=== PATIENT | male | born 1955 | race Caucasian/White ===

== ENCOUNTER 2021-08-31 09:07 | Observation (INO) | payer OTHER ==
--- OUTSIDE RECORDS SUMMARY | 2021-08-31 09:09 | XMS REPORT | Continuity of Care Document ---
:1955 Author Organization [facility] t Address [address] [place] [address] Care Team Providers Name Role Phone Chang Attending Clinician Unavailable Payers Payer Name Policy Type Policy Number Effective Date Expiration Date S ource Problems This patient has no known problems. Allergies, Adverse Reactions, Alerts This patient has no known allergies or adverse reactions. Medications This patient has no known medications. Procedures This patient has no known procedures. Encounters Start End Encounter Admission Attending Care Care Encounter Source Date/Time Date/Time Type Type Clinicians Facility Department ID 2021-04-25 Inpatient MADY Chang [facility] [id number] [facility] 16:00:00 Abel [id number] [facility] 2021-04-08 Inpatient MADY DowningMARIAHTO SURG [id number] [facility] 13:30:00 Abel [id number] [facility] Results This patient has no known results.
[2021-08-31 10:03] LABS: Absolute Lymphocytes (CBC) 1.3 K/uL (0.7-4.9); Hematocrit 44.9 % (39.6-49.0); Lymphocytes % 20.6 % (15.3-44.8); MPV 9.2 fL (7.6-11.3); RBC Red Blood Cell Count 5.24 M/uL (4.33-5.43)
[2021-08-31 10:04] LABS: Protime INR 1.05
[2021-08-31 10:21] LABS: ALT/SGPT 34 U/L (12-78); AST/SGOT 16 U/L (15-37); Albumin 3.8 g/dL (3.4-5.0); Alkaline Phosphatase 120 U/L (45-117); BUN Blood Urea Nitrogen 17 mg/dL (7-18); Bicarbonate 23 mmol/L (21-32); Bilirubin Direct 0.1 mg/dL (0-0.2); Bilirubin Total 0.7 mg/dL (0.2-1.0); Glucose Level 107 mg/dL (74-106); Magnesium 2.2 mg/dL (1.8-2.4); NT PRO-BNP 162 pg/mL (<125); Protein, Total 7.6 g/dL (6.4-8.2); Sodium Level 141 mmol/L (136-145); Troponin (Emerg Dept Use Only) < 0.02 ng/mL (0.0-0.045)
--- NOTE | 2021-08-31 11:00 | RAD REPORT ---
EXAM DESCRIPTION: RAD - Chest Single View - 08/31/2021 10:49 am CLINICAL HISTORY: CHEST PAIN COMPARISON: October 2017 TECHNIQUE: AP portable chest image was obtained 08/31/2021 10:49 am . FINDINGS: No peripheral mass or consolidation. Minimally prominent interstitial pattern matches comp arison. No acute failure or volume overload. Heart and vasculature are normal. No measurable pleural effusion and no pneumothorax. No acute bony abnormality seen. No acute aortic findings suspected. IMPRESSION: No acute cardiopulmonary process. No significant change from comparison study.
--- NOTE | 2021-08-31 16:18 | ER ---
Nurse's Notes [facility] Name: Solomon Qiu Age: 66 yrs Sex: Male : 1955 Arrival Date: 08/31/2021 Time: 09:08 Bed 24 Private MD: Diagnosis: Chest pain, unspecified;Bradycardia, unspecified Presentation: 08/31 09:34 Chief complaint: Patient states: Midsternal chest pain that does not radiate began this vg1 morning around 0630; denies NV or h/a, states shortness of breath. States took '4 baby aspirin this morning around 0830'. Coronavirus screen: Vaccine status: Patient reports receiving the 2nd dose of the covid vaccine. Client denies travel out of the [place] in the last 14 days. Ebola Screen: Patient negative for fever greater than or equal to 101.5 degrees Fahrenheit, and additional compatible Ebola Virus Disease symptoms. Initial Sepsis Screen: Does the patient meet any 2 criteria? No. Patient's initial sepsis screen is negative. Does the patient have a suspected source of infection? No. Patient's initial sepsis screen is negative. Risk Assessment: Do you want to hurt yourself or someone else? Patient reports no desire to harm self or others. Onset of symptoms was August 31, 2021. 09:34 Method Of Arrival: Ambulatory vg1 09:34 Acuity: RIMMA 2 vg1 Triage Assessment: 09:37 General: Appears in no apparent distress. uncomfortable, Behavior is calm, cooperative. vg1 Pain: Complains of pain in mid-sternal area Pain does not radiate. Cardiovascular: Patient's skin is warm and dry. Historical: - Allergies: 09:37 No Known Allergies; vg1 - Home Meds: 09:37 [place] Thyroid Oral [Active]; Vitamin B-12 sublingual [Active]; Vitamin D3 Oral vg1 [Active]; Metoprolol Tartrate Oral [Active]; 09:39 Lexapro Oral [Active]; vg1 - PMHx: 09:37 graves disease; Hypertension; Hypothyroidism; Atrial fibrillation; vg1 - PSHx: 09:37 Knee-Left; Shoulder-Right; Hernia repair; vg1 - Immunization history:: Client reports receiving the 2nd dose of the Covid vaccine. - Social history:: Smoking status: Patient denies any tobacco usage or history of. Screenin:02 Abuse screen: Denies threats or abuse. Denies injuries from another. Nutritional jl7 screening: No deficits noted. Tuberculosis screening: No symptoms or risk factors identified. Fall Risk IV access (20 points). Total Akbar Fall Scale indicates No Risk (0-24 pts). Assessment: 16:02 Reassessment: Patient appears in no apparent distress at this time. Patient and/or jl7 family updated on plan of care and expected duration. Pain level reassessed. Patient is alert, oriented x 3, equal unlabored respirations, skin warm/dry/pink. Patient denies pain at this time. Vital Signs: 09:34 BP 138 / 77; Pulse 50; Resp 20; Temp 97.1; Pulse Ox 100% ; Weight 113.4 kg; Height 5 vg1 ft. 10 in. (177.80 cm); Pain 4/10; 16:02 BP 131 / 68; Pulse 43; Resp 17 S; Pulse Ox 100% on R/A; Pain 0/10; jl7 20:31 BP 118 / 65; Pulse 66; Resp 17; Pulse Ox 99% ; cg 09:34 Body Mass Index 35.87 (113.40 kg, 177.80 cm) vg1 ED Course: 09:08 Patient arrived in ED. am2 09:37 Triage completed. vg1 09:37 Geremias Guerrero PA is PHCP. cp 09:37 Isaac Myles MD is Attending Physician. cp 09:37 Arm band placed on. EKG completed in triage. Results shown to MD. vg1 09:48 Basic Metabolic Panel Sent. jl7 09:48 LFT's Sent. jl7 09:48 Magnesium Sent. jl7 09:49 Initial lab(s) drawn, by in, sent to lab. Inserted saline lock: 20 gauge in right jl7 wrist, using aseptic technique. Blood collected. Patient maintains SpO2 saturation greater than 95% on room air. 10:49 XRAY Chest (1 view) In Process Unspecified. EDMS 15:53 Faisal Mckinnon, RN is Primary Nurse. jl7 16:02 Patient has correct armband on for positive identification. Bed in low position. Call [facility] light in reach. Side rails up X 1. campus monitor on. Pulse ox on. NIBP on. 16:16 Germain Mancia is Hospitalizing Provider. cp 17:31 COVID swab sent to lab. jl7 Administered Medications: 14:20 CANCELLED (Physician Discretion): Aspirin Chewable Tablet 324 mg PO once; 81 mg tablets cp x 4 Outcome: 16:17 Decision to Hospitalize by Provider. cp 20:52 Patient left the ED. bb Signatures: Dispatcher [employer] EDMS Sima Nickerson RN RN bb Geremias Guerrero PA PA cp Ivana Barcenas, RN RN Faisal Mckinnon RN RN jl7 Adalgisa Espinoza Victoria RN RN vg1
--- NOTE | 2021-08-31 16:18 | EDPHYS ---
Physician Documentation [facility] Name: Solomon Qiu Age: 66 yrs Sex: Male : 1955 Arrival Date: 08/31/2021 Time: 09:08 Bed 24 Private MD: ED Physician Isaac Myles HPI: 08/31 09:45 This 66 yrs old Male presents to ER via Ambulatory with complaints of Chest Pain > 30 cp y/o. 09:45 The patient presents with a history of heart racing. cp 09:45 Onset: The symptoms/episode began/occurred this morning, about 0630. Duration: The cp patient or guardian reports a single episode, that is still ongoing, but improving. The pain does not radiate. Associated signs and symptoms: Pertinent positives: chest tightness, Pertinent negatives: cough, fever, SOB, syncope, vomiting. Severity of pain: in the emergency department the pain has improved. 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 cp Historical: - Allergies: 09:37 No Known Allergies; vg1 - Home Meds: 09:37 [place] Thyroid Oral [Active]; Vitamin B-12 sublingual [Active]; Vitamin D3 Oral vg1 [Active]; Metoprolol Tartrate Oral [Active]; 09:39 Lexapro Oral [Active]; vg1 - PMHx: 09:37 graves disease; Hypertension; Hypothyroidism; Atrial fibrillation; vg1 - PSHx: 09:37 Knee-Left; Shoulder-Right; Hernia repair; vg1 - Immunization history:: Client reports receiving the 2nd dose of the Covid vaccine. - Social history:: Smoking status: Patient denies any tobacco usage or history of. ROS: 09:50 Constitutional: Negative for body aches, chills, fever, poor PO intake. cp 09:50 Cardiovascular: Positive for chest pain, palpitations, Negative for edema. cp 09:50 Eyes: Negative for injury, pain, redness, and discharge. cp 09:50 ENT: Negative for ear pain, sore throat, difficulty swallowing, difficulty handling secretions. 09:50 Respiratory: Negative for cough, shortness of breath, wheezing. 09:50 Abdomen/GI: Negative for abdominal pain, nausea, vomiting, and diarrhea. 09:50 Back: Negative for pain at rest, pain with movement. 09:50 : Negative for urinary symptoms. 09:50 Neuro: Negative for altered mental status, dizziness, headache, syncope, weakness. 09:50 All other systems are negative. Exam: 09:40 ECG was reviewed by the Attending Physician. cp 09:55 Constitutional: The patient appears in no acute distress, alert, awake, cp non-diaphoretic, non-toxic, well developed, well nourished. 09:55 Head/Face: Normocephalic, atraumatic. cp 09:55 Eyes: Periorbital structures: appear normal, Conjunctiva: normal, no exudate, no injection, Sclera: no appreciated abnormality, Lids and lashes: appear normal, bilaterally. 09:55 ENT: External ear(s): are unremarkable, Nose: is normal, Mouth: Lips: moist, Oral mucosa: pink and intact, moist, Posterior pharynx: Airway: no evidence of obstruction, patent. 09:55 Neck: ROM/movement: is normal, is supple, without pain, no range of motions limitations. 09:55 Chest/axilla: Inspection: normal, Palpation: is normal, no crepitus, no tenderness. 09:55 Cardiovascular: Rate: bradycardic, Rhythm: regular, Edema: is not appreciated, JVD: is not appreciated. 09:55 Respiratory: the patient does not display signs of respiratory distress, Respirations: normal, no use of accessory muscles, no retractions, labored breathing, is not present, Breath sounds: are clear throughout, no decreased breath sounds, no stridor, no wheezing. 09:55 Abdomen/GI: Inspection: abdomen appears normal, Bowel sounds: active, all quadrants, Palpation: abdomen is soft and non-tender, in all quadrants. 09:55 Back: pain, is absent, ROM is normal. Vital Signs: 09:34 BP 138 / 77; Pulse 50; Resp 20; Temp 97.1; Pulse Ox 100% ; Weight 113.4 kg; Height 5 vg1 ft. 10 in. (177.80 cm); Pain 4/10; 16:02 BP 131 / 68; Pulse 43; Resp 17 S; Pulse Ox 100% on R/A; Pain 0/10; jl7 20:31 BP 118 / 65; Pulse 66; Resp 17; Pulse Ox 99% ; cg 09:34 Body Mass Index 35.87 (113.40 kg, 177.80 cm) vg1 MDM: 14:13 Patient medically screened. cp 14:22 The patient was not given aspirin in the Emergency Department. Patient reports taking cp aspirin within the past 24 hours. ED course: Patient denies any current chest pain. 16:15 Data reviewed: vital signs, nurses notes, lab test result(s), EKG, radiologic studies, cp plain films. 16:15 Differential diagnosis: abnormal EKG, acute myocardial infarction, arrythmia, stable cp angina, unstable angina. Test interpretation: by ED physician or midlevel provider: ECG, plain radiologic studies. ED course: VS noted. Patient observed to have HR at 40 bpm on monitor. No current complaints of chest pain. Will admit for observation after consult with DR Mancia. 08/31 09:38 Order name: Basic Metabolic Panel 08/31 09:38 Order name: CBC with Diff; Complete Time: 10:17 08/31 11:04 Interpretation: Reviewed. 08/31 09:38 Order name: LFT's 08/31 09:38 Order name: Magnesium 08/31 09:38 Order name: NT PRO-BNP; Complete Time: 11:03 08/31 11:04 Interpretation: NT PRO-BNP 162; Reviewed. 08/31 09:38 Order name: PT-INR; Complete Time: 10:17 08/31 09:38 Order name: Troponin (emerg Dept Use Only); Complete Time: 11:03 08/31 11:05 Interpretation: Reviewed. 08/31 09:39 Order name: Basic Metabolic Panel; Complete Time: 11:03 EDLA 08/31 11:03 Interpretation: Normal except: CL 111; GLUC 107; GFR 62. 08/31 09:39 Order name: Liver (Hepatic) Function; Complete Time: 11:03 EDLA 08/31 11:03 Interpretation: Normal except: ALK 120; GLOB 3.8; A/G 1.0. 08/31 09:39 Order name: Magnesium; Complete Time: 11:03 EDLA 08/31 15:43 Order name: Troponin (emerg Dept Use Only) 08/31 16:37 Order name: SARS-COV-2 RT PCR (Document "Date of Onset" if Symptomatic) [facility] 08/31 16:37 Order name: SARS-COV-2 RT PCR EDMS 08/31 09:30 Order name: EKG; Complete Time: 09:30 vg1 08/31 09:30 Order name: EKG - Nurse/Tech; Complete Time: 09:48 vg1 08/31 09:38 Order name: XRAY Chest (1 view); Complete Time: 11:03 cp 08/31 11:05 Interpretation: Report reviewed. 08/31 09:38 Order name: IV Saline Lock; Complete Time: 09:48 cp 08/31 09:38 Order name: Labs collected and sent; Complete Time: 09:48 cp 08/31 09:38 Order name: O2 Per Protocol; Complete Time: 09:48 cp 08/31 09:38 Order name: O2 Sat Monitoring; Complete Time: 09:48 cp 08/31 15:43 Order name: EKG; Complete Time: 15:44 cp 08/31 15:43 Order name: EKG - Nurse/Tech; Complete Time: 15:53 cp 08/31 15:44 Order name: Vital Signs; Complete Time: 16:03 cp 08/31 16:32 Order name: Diet Heart Healthy; Complete Time: 16:33 cp EC:40 Rate is 47 beats/min. Rhythm is regular. [place] interval is normal. QRS interval is normal. cp QT interval is normal. Interpreted by me. Reviewed by me. Administered Medications: 14:20 CANCELLED (Physician Discretion): Aspirin Chewable Tablet 324 mg PO once; 81 mg tablets cp x 4 Disposition: 09/01 08:13 Co-signature as Attending Physician, Isaac Myles MD I agree with the assessment and kdr plan of care. Disposition Summary: 08/31/21 16:17 Hospitalization Ordered Hospitalization Status: Observation cp Provider: Germain Mancia cp Location: Telemetry/MedSurg (observation) cp Condition: Stable cp Problem: new cp Symptoms: have improved cp Bed/Room Type: Standard cp Room Assignment: 213(08/31/21 19:57) cg Diagnosis - Chest pain, unspecified cp - Bradycardia, unspecified cp Forms: - Medication Reconciliation Form cp - SBAR form cp Signatures: Dispatcher [employer] EDMS Isaac Myles MD MD kdr Page, Corey, PA PA cp Ivana Barcenas RN RN cg Garcia, Victoria, RN RN vg1 Corrections: (The following items were deleted from the chart) 12/29 14:20 13:17 TROPONIN (EMERG DEPT USE ONLY)+C.LAB.BRZ ordered. EDMS EDMS 14: 14:14 Aspirin Chewable Tablet 324 mg PO once; 81 mg tablets x 4 ordered. cp cp 14:22 09:45 The patient or guardian reports chest pain that is located primarily in the cp anterior chest wall, cp 19:57 16:17 cp cg
--- NOTE | 2021-08-31 17:17 | P.HP ---
Certification for Inpatient Patient admitted to: Observation With expected LOS: <2 Midnights Practitioner: I am a practitioner with admitting privileges, knowledge of patient current condition, hospital course, and medical plan of care. Services: Services provided to patient in accordance with Admission requirements found in Title 42 Section 412.3 of the Code of Federal Regulations Patient History Date of Service: 08/31/21 Reason for admission: Chest tightness. History of Present Illness: 66-year-old gentleman with a history of atrial fibrillation on metoprolol, not anticoagulated presented to the emergency department with a complaint of chest tightness of onset this morning. Symptoms associated with shortness of breath and preceded by palpitation. Patient denies any diaphoresis or nausea. He denies any abdominal pain, denies any cough. Patient noted to be bradycardic in the ED. EKG demonstrated sinus bradycardia, no heart block. He is on metoprolol 25 mg twice daily and took his morning dose. His heart rate was in the low 40s during my assessment in the ED. Patient currently asymptomatic. He is placed under observation for ACS rule out and further assessment of the bradycardia. Allergies No Known Allergies Allergy (Verified 10/05/17 01:32) Home Medications: Aspirin Chewable [Aspirin Chewable*] 81 mg PO DAILY #30 tab.chew 10/05/17 Levothyroxine [Synthroid] 75 mcg PO [id number] #30 tab 10/05/17 Metoprolol Tartrate 25 mg PO BID #60 tablet 10/05/17 - Past Medical/Surgical History Diabetic: No -: Graves disease -: Atrial fibrillation -: Iatrogenic hypothyroidism -: Hernia repair -: hemorrhodectomy - Family History Father -: Heart disease Mother -: Lung disease, Diabetes, Stroke, Kidney disease - Social History Alcohol use: No CD- Drugs: No Caffeine use: Yes Review of Systems Other: Except as documented, all other systems reviewed and negative. Physical Examination - Physical Exam General: Alert, In no apparent distress, Oriented x3 HEENT: Atraumatic, PERRLA, Mucous membr. moist/pink, Sclerae nonicteric Neck: Supple, JVD not distended Respiratory: Clear to auscultation bilaterally, Normal air movement Cardiovascular: No edema, Regular rate/rhythm, Normal S1 S2, No murmurs Gastrointestinal: Normal bowel sounds, Soft and benign, Non-distended, No tenderness Musculoskeletal: No swelling Integumentary: No rashes Neurological: Normal speech, Normal strength at 5/5 x4 extr, Cranial nerves 3-12 intact Lymphatics: No axilla or inguinal lymphadenopathy - Studies Laboratory Data (last 24 hrs) 08/31/21 09:40: PT 12.1, INR 1.05 08/31/21 09:40: WBC 6.10, Hgb 15.1, Hct 44.9, Plt Count 153 08/31/21 09:40: Sodium 141, Potassium 4.0, BUN 17, Creatinine 1.18, Glucose 107 H, Magnesium 2.2, Total Bilirubin 0.7, AST 16, ALT 34, Alkaline Phosphatase 120 H Assessment and Plan - Problems (Diagnosis) (1) Sinus bradycardia Current Visit: Yes Status: Acute (2) Chest pain Current Visit: Yes Status: Acute (3) Hypertension Current Visit: No Status: Acute (4) Hypothyroidism Current Visit: No Status: Acute (5) Paroxysmal atrial fibrillation Onset Date: 10/05/17 Current Visit: No Status: Acute - Plan Place patient under observation. Trend troponin Hold home dose metoprolol Obtain echocardiogram Check TSH for levothyroxine dose adjustment. Cardiology consult. Collect, confirm and reconcile home medications. - Advance Directives Does patient have a Living Will: No Does patient have a Durable POA for Healthcare: No
[2021-08-31 21:06] VITALS: O2SAT 99; BMI 35.6
[2021-08-31] MEDS ORDERED: MORPHINE 4 MG/ML SYR IV PRN (21:11)
[2021-08-31 21:46] LABS: HDL Cholesterol 35 mg/dL (40-60); LDL Cholesterol, Calculated 126 (<130); Troponin I < 0.02 ng/mL (0.0-0.045)
[2021-09-01 04:50] LABS: Absolute Lymphocytes (CBC) 1.7 K/uL (0.7-4.9); Hematocrit 41.5 % (39.6-49.0); Lymphocytes % 21.1 % (15.3-44.8); MPV 9.4 fL (7.6-11.3)
[2021-09-01 05:17] LABS: Potassium 4.3 mmol/L (3.5-5.1)
[2021-09-01] MEDS ORDERED: ESCITALOPRAM 20 MG TAB PO SCH (09:00)
[2021-09-01] MEDS ORDERED: ENOXAPARIN 40 MG/0.4 ML SQ SCH (09:00)
[2021-09-01] MEDS ORDERED: ASPIRIN EC 81 MG TAB PO SCH (09:00)
[2021-09-01] MEDS ORDERED: HOME MED 1 EA UNK (Thyroid,Pork [Armour Thyroid] 60 MG Tablet) PO SCH (09:00)
--- NOTE | 2021-09-01 14:26 | P.DS ---
Admission Date: 08/31/21 Discharge Date: 09/01/21 Disposition: ROUTINE DISCHARGE Discharge Condition: FAIR Reason for Admission: Chest tightness. Consultations: Cardiology-Dr. Campuzano. - Problems (1) Sinus bradycardia Current Visit: Yes Status: Acute (2) Chest pain Current Visit: Yes Status: Acute (3) Hypertension Current Visit: No Status: Acute (4) Hypothyroidism Current Visit: No Status: Acute (5) Paroxysmal atrial fibrillation Onset Date: 10/05/17 Current Visit: No Status: Acute Brief History of Present Illness: 66-year-old gentleman with a history of atrial fibrillation on metoprolol, not anticoagulated presented to the emergency department with a complaint of chest tightness of onset this morning. Symptoms associated with shortness of breath and preceded by palpitation. Patient denies any diaphoresis or nausea. He denies any abdominal pain, denies any cough. Patient noted to be bradycardic in the ED. EKG demonstrated sinus bradycardia, no heart block. He is on metoprolol 25 mg twice daily and took his morning dose. His heart rate was in the low 40s during my assessment in the ED. Patient currently asymptomatic. He is placed under observation for ACS rule out and further assessment of the bradycardia. Hospital Course: Patient placed under observation on the medical floor. Troponin trended negative. Patient evaluated by cardiology-Dr. Campuzano who recommended outpatient stress test. Patient was still bradycardic despite holding his home dose metoprolol. He was in sinus rhythm. Echocardiogram ordered and the result is pending. TSH within normal limit. ACS ruled out, vitals are stable. Patient is deemed stable for discharge. He will follow with Dr. Campuzano as an outpatient for stress test. Vital Signs/Physical Exam: Temp Pulse Resp BP Pulse Ox 97.8 F 50 18 130/63 98 09/01/21 08:00 09/01/21 08:00 09/01/21 08:00 09/01/21 08:00 09/01/21 08:00 General: Alert, In no apparent distress, Oriented x3 HEENT: Mucous membr. moist/pink Neck: Supple, JVD not distended Respiratory: Clear to auscultation bilaterally, Normal air movement Cardiovascular: No edema, Normal S1 S2, Other (Bradycardia) Gastrointestinal: Normal bowel sounds, Soft and benign, Non-distended, No tenderness Musculoskeletal: No swelling Integumentary: No rashes Neurological: Normal strength at 5/5 x4 extr Laboratory Data at Discharge: WBC 8.10 K/uL (4.3-10.9) D 09/01/21 04:22 Hgb 13.7 g/dL (13.6-17.9) 09/01/21 04:22 Hct 41.5 % (39.6-49.0) 09/01/21 04:22 Plt Count 154 K/uL (152-406) 09/01/21 04:22 PT 12.1 SECONDS (9.5-12.5) 08/31/21 09:40 INR 1.05 08/31/21 09:40 Sodium 143 mmol/L (136-145) 09/01/21 04:22 Potassium 4.3 mmol/L (3.5-5.1) 09/01/21 04:22 BUN 24 mg/dL (7-18) H 09/01/21 04:22 Creatinine 1.44 mg/dL (0.55-1.3) H 09/01/21 04:22 Glucose 102 mg/dL (74-106) 09/01/21 04:22 Magnesium 2.2 mg/dL (1.8-2.4) 08/31/21 09:40 Total Bilirubin 0.7 mg/dL (0.2-1.0) 08/31/21 09:40 AST 16 U/L (15-37) 08/31/21 09:40 ALT 34 U/L (12-78) 08/31/21 09:40 Alkaline Phosphatase 120 U/L (45-117) H 08/31/21 09:40 Troponin I < 0.02 ng/mL (0.0-0.045) 09/01/21 00:41 Triglycerides 280 mg/dL (<150) H 08/31/21 21:21 Cholesterol 217 mg/dL (<200) H 08/31/21 21:21 HDL Cholesterol 35 mg/dL (40-60) L 08/31/21 21:21 Cholesterol/HDL Ratio 6.20 08/31/21 21:21 Home Medications: Escitalopram [Lexapro*] 0.5 tab PO DAILY 08/31/21 Thyroid,Pork [[place] Thyroid] 1 tab PO DAILY 08/31/21 Aspirin [Aspirin EC 81 MG] 81 mg PO DAILY #30 tablet. 09/01/21 New Medications: Aspirin [Aspirin EC 81 MG] 81 mg PO DAILY #30 tablet. Physician Discharge Instructions: Please call Dr. Campuzano's office at [phone] for arrangement for outpatient stress test. Diet: AHA Activity: Ad dominic Followup: José Manuel Pal DO [Primary Care Provider] - 1-2 Weeks Rafa Campuzano MD [ACTIVE - CAN ADMIT] - 1 Week (Outpatient stress test)
[2021-09-01 17:37] VITALS: BP 156/70; TEMP 97.9
[2021-09-02] MEDS ORDERED: THYROID 30 MG TAB PO SCH (06:00)
--- NOTE | 2021-09-05 08:30 | ECHO ---
HEIGHT: 5 ft 10 in WEIGHT: 248 lb 14.4 oz DATE OF STUDY: 09/01/[address]: tono bartlett 2-DIMENSIONAL: YES M.MODE: YES DOPPLER: YES COLOR FLOW: YES TDS: PORTABLE: DEFINITY: BUBBLE STUDY: DIAGNOSIS: SYMPTOMATIC BRADYCARDIA CARDIAC HISTORY: CATHERIZATION: SURGERY: PROSTHETIC VALVE: PACEMAKER: MEASUREMENTS (cm) DIASTOLIC (NORMALS) SYSTOLIC (NORMALS) IVSd 1.1 (0.6-1.2) LA Diam 3.8 (1.9-4.0) LVEF 60-65% LVIDd 5.5 (3.5-5.7) LVIDs 3.2 (2.0-3.5) %FS 43% LVPWd 1.2 (0.6-1.2) Ao Diam 3.2 (2.0-3.7) 2 DIMENSIONAL ASSESSMENT: RIGHT ATRIUM: NORMAL LEFT ATRIUM: NORMAL RIGHT VENTRICLE: NORMAL LEFT VENTRICLE: NORMAL TRICUSPID VALVE: NORMAL MITRAL VALVE: MILD MITRAL REGURGITATION PULMONIC VALVE: NORMAL AORTIC VALVE: NORMAL PERICARDIAL EFFUSION: NONE AORTIC ROOT: NORMAL LEFT VENTRICULAR WALL MOTION: NORMAL DOPPLER/COLOR FLOW: MILD MITRAL REGURGITATION COMMENTS: NORMAL LEFT VENTRICULAR EJECTION FRACTION 60-65%. NORMAL WALL MOTION. MILD MITRAL REGURGITATION. TECHNOLOGIST: CHENG RODAS
== END 2021-09-01 17:25 | disposition home or self-care (01) ==
LOC: ER 09:07 → ERHOLD 17:02 → 2ND 20:37
PROVIDERS: ADMIT Internal Medicine; ATTEND Internal Medicine
DX: R00.1 Bradycardia, unspecified (principal); R07.9 Chest pain, unspecified; I48.0 Paroxysmal atrial fibrillation; I10 Essential (primary) hypertension; E03.2 Hypothyroidism due to medicaments and other exogenous substances; E05.00 Thyrotoxicosis with diffuse goiter without thyrotoxic crisis or storm; Z20.822 Contact with and (suspected) exposure to COVID-19; Z82.49 Family history of ischemic heart disease and other diseases of the circulatory system; Z82.3 Family history of stroke; Z83.3 Family history of diabetes mellitus; Z84.1 Family history of disorders of kidney and ureter; Z83.6 Family history of other diseases of the respiratory system
CPT/HCPCS: 93005 ×2; 93306; 85025 ×2; 80048 ×2; 36415; 83735; 85610; 80061; 80076; 84443; 84484 ×4; 83880; 71045; 99285; U0003; J1650; G0378 ×3

== ENCOUNTER 2022-10-12 19:04 | Emergency (ER) | payer OTHER ==
--- OUTSIDE RECORDS SUMMARY | 2022-10-12 19:09 | XMS REPORT | Continuity of Care Document ---
:1955 Author Organization [facility] t Address [address] [place] [address] Dr. Stephen[address] [place] [address] Care Team Providers Name Role Phone Asked, No Pcp Primary Care Physician Unavailable Abel Downing Attending Clinician Unavailable Sadi Johnson Attending Clinician Unavailable Sadi Johnson Admitting Clinician Unavailable Payers Payer Name Policy Type Policy Number Effective Date Expiration Date S ource Problems This patient has no known problems. Allergies, Adverse Reactions, Alerts Allergy Allergy Status Severity Reaction(s) Onset Inactive Treating Comm ents Source Name Type Date Date Clinician No Known DA Active U [facility]ie 09-20 Clear s 00:00: Uribe 00 [facility] Social History Social Habit Start Date Stop Date Quantity Comments Source Sex Assigned At [birth year] [facility] 00:00:00 00:00:00 Smoking Status Start Date Stop Date Source Tobacco smoking consumption unknown [facility] Medications This patient has no known medications. Procedures Procedure Date / Time Performed Performing Clinician Elyse garcia [id number] 2021-09-26 00:00:00 [facility] [id number] 2021-09-26 00:00:00 [facility] [id number] 2021-09-26 00:00:00 [facility] Plan of Care Planned Activity Planned Date Details Comments Source Future Scheduled 2022-08-19 COVID-19 VACCINE (#1) [facility] Test 05:37:59 [code = COVID-19 VACCINE (#1)] Future Scheduled 2022-08-19 COLONOSCOPY SCREENING [facility] Test 05:37:59 [code = COLONOSCOPY SCREENING] Future Scheduled 2022-08-19 SHINGLES VACCINES (1 [facility] Test 05:37:59 of 2) [code = SHINGLES VACCINES (1 of 2)] Future Scheduled 2022-08-19 65+ PNEUMOCOCCAL Methodi [facility] Test 05:37:59 VACCINE (1 - PCV) [code = 65+ PNEUMOCOCCAL VACCINE (1 - PCV)] Future Scheduled 2022-08-19 INFLUENZA VACCINE Method [facility] Test 05:37:59 [code = INFLUENZA VACCINE] Encounters Start End Encounter Admission Attending Care Care Encounter Source Date/Time Date/Time Type Type Clinicians Facility Department ID 2021-04-25 Inpatient MADY Downing, [facility] [id number] [facility] 16:00:00 Abel 20 [facility] 2021-09-26 2021-09-27 Inpatient MADY Johnson, [facility]G [id number] [facility] 09:42:00 15:00:00 Sadi 52 [facility] 2021-09-20 2021-09-20 Outpatient MADY Johnson, [facility]AT[facility] 3DAY [id number] [facility] 09:00:00 23:00:00 Sadi 89 [facility] 2021-09-20 2021-09-20 Outpatient Alex, HCACL LABO [id number] [facility] 16:31:00 16:31:00 Sadi 76 [facility] Results Test Description Test Time Test Comments Results Result [facility] e Comments - XR PELVIS 09/042021-09-26 [facility]WS [facility]:24:[facility] 1955 Sex: M Patient Name: VIVEK QIU Unit No: [id number] EXAMS: CPT CODE: [id number] XR PELVIS 1/2 VIEWS 05028 INTRAOPERATIVE LEG LENGTH FILM COMMENT: COMPARISON: No prior exams available. In progress right hip replacement is noted. at 1524 Reported and signed by: Tai Gastelum MD CC: Sadi Johnson MD Technologist: FERNANDO NGUYEN (RT.R) Transcribed D/ (1524) [facility]: VIVEK [facility]IU [address] [facility] PHYS: Sadi Segovia MD : 1955 AGE: 66 SEX: M [place] [address] LOC: Y.319 A PHONE #: [phone] EXAM DATE: 09/26/2021 STATUS: ADM IN FAX #: [phone] RAD #: [id number] D/C DT PAGE 1 Signed Report Patient Name: VIVEK QIU Unit No: [id number] EXAMS: CPT CODE: [id number] XR PELVIS 1/2 VIEWS 45829 (Continued) Orig Print D/T: S: 09/26/2021 (1527) [facility] NAME: VIVEK QIU [id number] [facility] PHYS: Sadi Segovia MD : 1955 AGE: 66 SEX: M [place], [place] [address] LOC: Y.319 A PHONE #: [phone] EXAM DATE: 09/26/2021 STATUS: ADM IN FAX #: [phone] RAD #: [id number] D/C DT PAGE 2 Signed Report VITAMIN D 25-HYDROXY (TOTAL) 2021-09-21 07:16:00 Test Item Value Reference Range Interpretation Comme nts VITAMIN D 25-HYDROXY (TOTAL) 43.4 ng/mL 30.0-100.0 Vitamin D deficiency has been (test code = VITD25) defined by the [place] and an Endocrine Society practic e guideline as alevel of serum 25-OH vitamin D less than 20 ng /mL (1,2).The Endocrine Socie ty went on to further define vitamin Dinsufficiency as a level between 21 and 29 ng/mL (2).1. IOM ([place] ed[place]). 2010. Dietary referen ce intakes for calcium and D. Gold [place]: The National [employer] ies Press.2. Lizett DIA, Brandon KOENIG, Anahi gant TOWNSEND, et al. Evaluation, linda atment, and prevention of v itamin D deficiency: an Endocrine Society clinical practi ce guideline. JCEM. 2010; 96(7):1911-30.P erformed At: [facility] [address] [id number] Janes Watson MD Ph:[phone] PROTHROMBIN [id number] 12:09:00 Test Item Value Reference Range Interpretation Comments PROTHROMBIN TIME 13.3 secs 9.7-12.5 H Please note new normal PATIENT (test code = range. PTP) INTERNATIONAL NORMAL 1.20 <2.0 RECOMME NDED THERAPEUTIC RATIO (test code = RANGE FOR ORAL INR) ANTICOAGULANTTR EATMENT: CONDITION INRPr ophylaxis of venous throm bosis in 2.0 - 3.0 high- risk medical or surg ical patientsTreatme nt of venous thrombos is 2.0 - 3.0Prevention o f embolism 2.0 - 3.0Prevention o f recurrent embol ism, or 3.0 - 4.5 patie nts with mechanical pros thetic intravascular v tinsley IS PATIENT ON ANTICOAGULANTS ? YLIST ANTICOAGULANT/ANTI PLT MEDICATION : AspirinHas Lab been notified if Patient is on Heparin Drip? NOIf Yes, order CBC, OCCULT BLOOD, PT every other day NTHROMBOPLASTIN TIME [id number] 12:09:00 Test Item Value Reference Range Interpretation Comments PTT ACTIVATED (test 33.6 secs 26.6-34.6 N Please n ote new code = APTT) normal range. IS PATIENT ON ANTICOAGULANTS ? YLIST ANTICOAGULANT/ANTI PLT MEDICATION : AspirinHas Lab been notified if Patient is on Heparin Drip? NOIf Yes, order CBC, OCCULT BLOOD, PT every other day NCOMPREHENSIVE METABOLIC [id number] 11:49:00 Test Item Value Reference Range Interpretation Comments SODIUM (test code = 141 mmol/L 136-145 N NA) POTASSIUM (test code = 4.9 mmol/L 3.5-5.1 N K) CHLORIDE (test code = 104.0 mmol/L 98-107 N CL) CARBON DIOXIDE (test 28.3 mmol/L 21-32 N code = CO2) GLUCOSE (test code = 101 mg/dL 70-110 N GLU) BLOOD UREA NITROGEN 22 mg/dL 7-18 H (test code = BUN) GLOMERULAR FILTRATION 53.5 >60 Unit o f measure: RATE (test code = GFR) mL/mi n/1.73 g1Etumidimu Range:Healthy Adults >90 mL/min/1.73 m2 For Chronic Kidney Disease: Stage II Mild Decrease i n GFR 60-90 Stage III Moderate Decrea se in GFR 30-59 St age IV Severe Decre ase in GFR 15-29 St age V Kidney Failur e <15 CREATININE (test code 1.34 mg/dL 0.55-1.30 H = CREAT) TOTAL PROTEIN (test 7.3 g/dL 6.4-8.2 N code = PROT) ALBUMIN (test code = 4.2 g/dL 3.4-5.0 N ALB) GLOBULIN (test code = 3.1 g/dL 2.2-4.2 N GLOB) ALBUMIN/GLOBULIN RATIO 1.4 0.7-2.0 N (test code = A/G) CALCIUM (test code = 9.2 mg/dL 8.2-10.1 N CA) BILIRUBIN TOTAL (test 0.60 mg/dL 0.2-1.00 N code = BILT) SGOT/AST (test code = 19.0 U/L 15-37 N AST) SGPT/ALT (test code = 34.0 U/L 12-78 N Please note new ALT) normal range. ALKALINE PHOSPHATASE 120 U/L 46-116 H TOTAL (test code = ALKP) CBC W/AUTO [id number] 10:46:00 Test Item Value Reference Range Interpretation Comments WHITE BLOOD CELL (test code = WBC) 5.5 K/mm3 5.7-10.5 L RED BLOOD CELL (test code = RBC) 5.09 M/mm3 4.2-5.4 N HEMOGLOBIN (test code = HGB) 14.6 g/dL 12-16 N HEMATOCRIT (test code = HCT) 44.1 % 37-47 N MEAN CELL VOLUME (test code = MCV) 87 fL 80-98 N MEAN CELL HGB (test code = MCH) 28.7 pg 27-34 N MEAN CELL HGB CONCENTRATION (test 33.1 g/dL 30.8-34.1 N code = MCHC) RED CELL DISTRIBUTION WIDTH (test 13.1 % 11-16 N code = RDW) PLT (test code = PLT) 174 K/mm3 130-400 N MEAN PLATELET VOLUME (test code = 11.3 fL 8.9-12.1 N MPV) NEUTROPHIL % (test code = NT%) 70.7 % 45-70 H LYMPHOCYTE % (test code = LY%) 17.4 % 20-40 L MONOCYTE % (test code = MO%) 10.1 % 3-10 H EOSINOPHIL % (test code = EO%) 0.9 % 1-5 L BASOPHIL % (test code = BA%) 0.4 % 0.0-1.1 N NEUTROPHIL # (test code = NT#) 3.87 K/mm3 2.00-7.50 N LYMPHOCYTE # (test code = LY#) 0.95 K/mm3 1.50-4.00 L MONOCYTE # (test code = MO#) 0.55 K/mm3 0.2-0.8 N EOSINOPHIL # (test code = EO#) 0.05 K/mm3 0.04-0.4 N BASOPHIL # (test code = BA#) 0.02 K/mm3 0.02-0.10 N MANUAL DIFF REQUIRED (test code = NO MANUAL DIFF MDIFF) NUCLEATED RED BLOOD CELL (test 0 % 0-0 N code = NRBC)
[2022-10-12 19:49] LABS: Absolute Lymphocytes (CBC) 1.5 K/uL (0.7-4.9); Hematocrit 43.2 % (39.6-49.0); Lymphocytes % 19.9 % (15.3-44.8); MCV 86.1 fL (80-100); MPV 8.7 fL (7.6-11.3); RBC Red Blood Cell Count 5.01 M/uL (4.33-5.43)
--- NOTE | 2022-10-12 20:00 | RAD REPORT ---
EXAM DESCRIPTION: RAD - Chest Single View - 10/12/2022 7:49 pm CLINICAL HISTORY: Chest pain Chest pain. COMPARISON: Chest Single View dated 08/31/2021; Chest Single View dated 10/05/2017; CHEST PA AND LAT 2 VIEW dated 03/14/2013; CHEST SINGLE VIEW dated 08/10/2011 FINDINGS: Portable technique limits examination quality. The lungs are grossly clear. The heart is normal in size. No displaced fractures. IMPRESSION: No acute intrathoracic process suspected.
[2022-10-12 20:08] LABS: Troponin High Sensitivity 7.7 pg/mL (<58.9)
[2022-10-12 20:10] LABS: SARS-CoV-2 Antigen Rapid Res Negative (Negative)
[2022-10-12] MEDS ORDERED: MAGNESIUM SULFATE 1 gm IVPB 1 GM/100 ML BAG IV ONE (20:10)
--- NOTE | 2022-10-12 20:45 | EDPHYS ---
Physician Documentation [facility] Name: Solomon Qiu Age: 67 yrs Sex: Male : 1955 Arrival Date: 10/12/2022 Time: 19:07 Bed 4 Private MD: José Manuel Pal ED Physician Tello Stack HPI: 10/12 19:55 This 67 yrs old Male presents to ER via Ambulatory with complaints of palpitations, rn Chest Pain. 19:55 The patient or guardian reports chest pain that is located primarily in the chest rn diffusely. Onset: just prior to arrival. The pain does not radiate. Associated signs and symptoms: Pertinent positives: palpitations, shortness of breath, Pertinent negatives: abdominal pain, cough, diaphoresis, syncope, vomiting. The chest pain is described as aching. Duration: The patient or guardian reports a single episode, that is now resolved. Modifying factors: The symptoms are alleviated by nothing. the symptoms are aggravated by nothing. Severity of pain: At its worst the pain was mild in the emergency department the pain has resolved. The patient has experienced similar episodes in the past. The patient has not recently seen a physician. Pt reports palpitations while at home walking from shop, assoc with sob and chest pain that was mild, resolved upon arrival to ER. Reports told by Dr. Emanuel to stop metoprolol because HR too low. Currently asymptomatic. . Historical: - Allergies: 19:26 No Known Allergies; mb9 - Home Meds: 19:26 Lexapro Oral [Active]; levothyroxine oral [Active]; Aspirin Oral [Active]; mb9 - PMHx: 19:26 Atrial fibrillation; graves disease; Hypertension; Hypothyroidism; mb9 - PSHx: 19:26 hernia repair; Knee-Left; Shoulder-Right; mb9 - Immunization history:: Adult Immunizations up to date. - Social history:: Smoking status: Patient denies any tobacco usage or history of. - Family history:: not pertinent. - Hospitalizations: : No recent hospitalization is reported. ROS: 19:55 Constitutional: Negative for fever, chills, and weight loss, Eyes: Negative for injury, rn pain, redness, and discharge, Neck: Negative for injury, pain, and swelling, Cardiovascular: + chest pain and palpitations Respiratory: + sob Abdomen/GI: Negative for abdominal pain, nausea, vomiting, diarrhea, and constipation, MS/Extremity: Negative for injury and deformity, Skin: Negative for injury, rash, and discoloration, Neuro: Negative for headache, weakness, numbness, tingling, and seizure. Exam: 19:55 Constitutional: This is a well developed, well nourished patient who is awake, alert, rn and in no acute distress. Head/Face: Normocephalic, atraumatic. Eyes: Periorbital areas with no swelling, redness, or edema. Cardiovascular: Regular rate and rhythm. No pulse deficits. Respiratory: No increased work of breathing, no retractions or nasal flaring. Abdomen/GI: soft, non-tender Skin: Warm, dry MS/ Extremity: Pulses equal, no cyanosis. Neuro: Awake and alert, GCS 15 21:11 ECG was reviewed by the Attending Physician. rn Vital Signs: 19:24 BP 150 / 74; Pulse 73; Resp 18; Temp 98.8; Pulse Ox 99% on R/A; Weight 117.93 kg; mb9 Height 5 ft. 10 in. (177.80 cm); 20:30 BP 111 / 57; Pulse 56; Resp 16; Pulse Ox 98% ; vc1 19:24 Body Mass Index 37.31 (117.93 kg, 177.80 cm) mb9 MDM: 19:12 Patient medically screened. rn 20:42 Differential diagnosis: acute myocardial infarction, acute pericarditis, anxiety, rn coronary artery disease pericarditis, pneumothorax, stable angina, afib with rvr. HEART Score: History: Slightly Suspicious (0), ECG: Normal (0), Age: > or = 65 years (2), Risk Factors: 1 or 2 risk factors (1), Troponin: < or = 1 x Normal Limit (0), Total Score = 3. Data reviewed: vital signs, nurses notes, lab test result(s), EKG, radiologic studies, plain films, and as a result, I will discharge patient. Counseling: I had a detailed discussion with the patient and/or guardian regarding: the historical points, exam findings, and any diagnostic results supporting the discharge/admit diagnosis, lab results, radiology results, the need for outpatient follow up, to return to the emergency department if symptoms worsen or persist or if there are any questions or concerns that arise at home. Special discussion: I discussed with the patient/guardian in detail that at this point there is no indication for admission to the hospital. It is understood, however, that if the symptoms persist or worsen the patient needs to return immediately for re-evaluation. Based on the history and exam findings, there is no indication for further emergent testing or inpatient evaluation. I discussed with the patient/guardian the need to see the tennis net maker for further evaluation of the symptoms. ED course: Pt resolved prior to coming in after taking metoprolol at home, palpitations/CP/sob coincided together and all resolved together, pointing more to afib with rvr as root cause. Trop neg here. Still asymptomatic. Will dc home with f/u with Dr. Emanuel. Takes aspirin daily already. . 10/12 19:22 Order name: Basic Metabolic Panel; Complete Time: 20:36 rn 10/12 19:22 Order name: CBC with Diff; Complete Time: 20:03 rn 10/12 19:22 Order name: NT PRO-BNP; Complete Time: 20:36 rn 10/12 19:22 Order name: Troponin HS; Complete Time: 20:36 rn 10/12 19:22 Order name: XRAY Chest (1 view); Complete Time: 20:03 rn 10/12 19:34 Order name: SARS RAPID; Complete Time: 20:36 kl 10/12 19:22 Order name: EKG; Complete Time: 19:23 rn 10/12 19:22 Order name: Cardiac monitoring; Complete Time: 19:37 rn 10/12 19:22 Order name: EKG - Nurse/Tech; Complete Time: 19:56 rn 10/12 19:22 Order name: IV Saline Lock; Complete Time: 19:37 rn 10/12 19:22 Order name: Labs collected and sent; Complete Time: 19:37 rn 10/12 19:22 Order name: O2 Per Protocol; Complete Time: 19:37 rn 10/12 19:22 Order name: O2 Sat Monitoring; Complete Time: 19:37 rn EC:11 Rate is 62 beats/min. Rhythm is regular. QRS [place] is Normal. TN interval is normal. QRS rn interval is normal. QT interval is normal. No Q waves. T waves are Normal. No ST changes noted. Clinical impression: Normal ECG. Interpreted by me. Reviewed by me. Administered Medications: 20:15 Drug: Magnesium Sulfate 1 grams Route: IVPB; Infused Over: 1 hrs; Site: left jb4 antecubital; 21:09 Follow up: Response: No adverse reaction jb4 Disposition Summary: 10/12/22 20:44 Discharge Ordered Location: Home rn Problem: new rn Symptoms: are resolved rn Condition: Stable rn Diagnosis - Paroxysmal atrial fibrillation - Resolved rn - Palpitations rn - Chest pain, unspecified rn Followup: rn - With: Private Physician - When: As needed - Reason: Recheck today's complaints, Re-evaluation by your physician Discharge Instructions: - Discharge Summary Sheet rn - Atrial Fibrillation rn - Nonspecific Chest Pain, Adult rn - Palpitations rn Forms: - Medication Reconciliation Form rn - Thank You Letter rn - 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
--- NOTE | 2022-10-12 20:45 | ER ---
Nurse's Notes [facility] Name: Solomon Qiu Age: 67 yrs Sex: Male : 1955 Arrival Date: 10/12/2022 Time: 19:07 Bed 4 Private MD: José Manuel Pal Diagnosis: Paroxysmal atrial fibrillation-Resolved;Palpitations;Chest pain, unspecified Presentation: 10/12 19:24 Chief complaint: Patient states: "I started having chest pain at 6 today. My heart rate mb9 went up to 110 and then down to 50, which is where i usually am". Coronavirus screen: Vaccine status: Patient reports receiving the 2nd dose of the covid vaccine. Ebola Screen: No symptoms or risks identified at this time. Initial Sepsis Screen: Does the patient meet any 2 criteria? No. Patient's initial sepsis screen is negative. Does the patient have a suspected source of infection? No. Patient's initial sepsis screen is negative. Risk Assessment: Do you want to hurt yourself or someone else? Patient reports no desire to harm self or others. Onset of symptoms was October 12, 2022. 19:24 Acuity: RIMMA 3 mb9 19:24 Method Of Arrival: Ambulatory mb9 Historical: - Allergies: 19:26 No Known Allergies; mb9 - Home Meds: 19:26 Lexapro Oral [Active]; levothyroxine oral [Active]; Aspirin Oral [Active]; mb9 - PMHx: 19:26 Atrial fibrillation; graves disease; Hypertension; Hypothyroidism; mb9 - PSHx: 19:26 hernia repair; Knee-Left; Shoulder-Right; mb9 - Immunization history:: Adult Immunizations up to date. - Social history:: Smoking status: Patient denies any tobacco usage or history of. - Family history:: not pertinent. - Hospitalizations: : No recent hospitalization is reported. Screenin:05 [facility] ED Fall Risk Assessment (Adult) History of falling in the last 3 months, vc1 including since admission No falls in past 3 months (0 pts) Confusion or Disorientation No (0 pts) Intoxicated or Sedated No (0 pts) Impaired Gait No (0 pts) Mobility Assist Device Used No (0 pt) Altered Elimination No (0 pt) Score/Fall Risk Level 0 - 2 = Low Risk Oriented to surroundings, Maintained a safe environment, Educated pt \\T\\ family on fall prevention, incl call for assistance when getting out of bed, Assessed \\T\\ reinforced patient's understanding of fall precautions, Provided non-skid footwear. Abuse screen: Denies threats or abuse. Nutritional screening: No deficits noted. Tuberculosis screening: No symptoms or risk factors identified. Assessment: 19:30 General: Appears in no apparent distress. comfortable, Behavior is calm, cooperative, jb4 appropriate for age. Pain: Complains of pain in chest Pain does not radiate. Pain currently is 0 out of 10 on a pain scale. Quality of pain is described as tightness. Neuro: Level of Consciousness is awake, alert, obeys commands, Oriented to person, place, time, situation. Cardiovascular: Patient's skin is warm and dry. Respiratory: Airway is patent Respiratory effort is even, unlabored, Respiratory pattern is regular, symmetrical. GI: No signs and/or symptoms were reported involving the gastrointestinal system. : No signs and/or symptoms were reported regarding the genitourinary system. EENT: No signs and/or symptoms were reported regarding the EENT system. Derm: Skin is intact, Skin is pink, warm \\T\\ dry. Musculoskeletal: Circulation, motion, and sensation intact. Range of motion: intact in all extremities. 20:30 Reassessment: Patient appears in no apparent distress at this time. Patient and/or jb4 family updated on plan of care and expected duration. Pain level reassessed. Patient is alert, oriented x 3, equal unlabored respirations, skin warm/dry/pink. 21:07 Reassessment: Patient appears in no apparent distress at this time. Patient and/or vc1 family updated on plan of care and expected duration. Pain level reassessed. Patient is alert, oriented x 3, equal unlabored respirations, skin warm/dry/pink. Patient states feeling better. Patient states symptoms have improved. Pain: Denies pain. Pain began suddenly. Vital Signs: 19:24 BP 150 / 74; Pulse 73; Resp 18; Temp 98.8; Pulse Ox 99% on R/A; Weight 117.93 kg; mb9 Height 5 ft. 10 in. (177.80 cm); 20:30 BP 111 / 57; Pulse 56; Resp 16; Pulse Ox 98% ; vc1 19:24 Body Mass Index 37.31 (117.93 kg, 177.80 cm) mb9 ED Course: 19:07 Patient arrived in ED. am2 19:07 José Manuel Pal DO is Private Physician. am2 19:12 Tello Stack MD is Attending Physician. rn 19:26 Triage completed. mb9 19:26 Arm band placed on. mb9 19:27 Placed in gown. Bed in low position. Call light in reach. Side rails up X 1. Client mb9 placed on continuous cardiac and pulse oximetry monitoring. NIBP monitoring applied. 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 19:30 Initial lab(s) drawn, by nv, sent to lab. Inserted saline lock: 20 gauge in left jb4 antecubital area, using aseptic technique. Blood collected. Patient maintains SpO2 saturation greater than 95% on room air. 19:33 Remi Smallwood, RN is Primary Nurse. jb4 19:51 XRAY Chest (1 view) In Process Unspecified. EDMS 19:56 SARS RAPID Sent. jb4 21:06 No provider procedures requiring assistance completed. IV discontinued, intact, vc1 bleeding controlled, No redness/swelling at site. Pressure dressing applied. Administered Medications: 20:15 Drug: Magnesium Sulfate 1 grams Route: IVPB; Infused Over: 1 hrs; Site: left jb4 antecubital; 21:09 Follow up: Response: No adverse reaction jb4 Medication: 21:07 VIS not applicable for this client. vc1 Outcome: 20:44 Discharge ordered by . rn 21:06 Discharged to home ambulatory, with significant other. vc1 21:06 Condition: good 21:06 Discharge instructions given to patient, significant other, Instructed on discharge instructions, follow up and referral plans. Demonstrated understanding of instructions, follow-up care. 21:09 Patient left the ED. vc1 Signatures: Dispatcher [employer] EDMS Tello Stack MD MD rn Bryson, James, RN RN jb4 Adalgisa Espinoza am2 Usha Almanzar RN RN vc1 Lisseth Fierro RN RN mb9
== END 2022-10-12 21:09 | disposition home or self-care (01) ==
LOC: ER 19:04
DX: R00.2 Palpitations (principal); R07.89 Other chest pain; I10 Essential (primary) hypertension; I48.91 Unspecified atrial fibrillation; E03.9 Hypothyroidism, unspecified; Z20.822 Contact with and (suspected) exposure to COVID-19; Z79.82 Long term (current) use of aspirin
CPT/HCPCS: 93005; 85025; 80048; 36415; 84484; 83880; 71045; 96374; 99285; 87811; J3475